=== PATIENT | male | born 1935 ===

== ENCOUNTER 2023-11-28 13:03 | Outpatient (CLI) | payer MEDICARE ==
[2023-11-28 13:35] LABS: CALCIUM 8.9 mg/dL (8.5-10.3); CREATININE 2.1 mg/dL (0.6-1.3); POTASSIUM 4.2 mmol/L (3.5-4.5)
== END 2023-11-28 13:04 | disposition home or self-care (01) ==
LOC: LAB.R 13:03
PROVIDERS: ATTEND Internal Medicine
DX: I50.23 Acute on chronic systolic (congestive) heart failure (principal)
CPT/HCPCS: 80048